=== PATIENT | male | born 1965 | race Caucasian/White ===

== ENCOUNTER 2021-06-25 15:36 | Emergency (ER) | payer OTHER ==
[~2021-06-25] VITALS: Ht 182.9 cm; Wt 95.3 kg
--- NOTE | 2021-06-25 15:38 | NUR ---
Placed in room 6 . Placed on cardiac cath rn, blood pressure machine and pulse oximeter. To gown for exam. Side rails up.
--- NOTE | 2021-06-25 15:41 | NUR ---
ER DR. PARKER AT THE BEDSIDE EXAMINING PT
[2021-06-25 15:44] VITALS: BP_SYST 168
--- NOTE | 2021-06-25 15:45 | NUR ---
PT SENT OVER FROM [facility] FOR C/O HTN AND GUERRERO. PT CHECKED HIMSELF IN TODAY FOR DETOX FROM ETOH. PT REPORTS HIS LAST DRINK WAS THIS AM. PT ARRIVES BP 168/98, PULSE 92. V/S STABLE. PT IS AAOX4. SKIN IS PINK, WARM AND DRY, BREATHING EVEN AND UNLABORED. NO DISTRESS NOTED.
[2021-06-25] MEDS ORDERED: LORazepam 1 MG TABLET PO ONE (16:00)
--- NOTE | 2021-06-25 16:30 | NUR ---
PT SITTING UP IN BED, AWAKE, ALERT, NO DISTRESS NOTED.
--- NOTE | 2021-06-25 17:08 | NUR ---
REPORT GIVEN TO MANE RAMIREZ FOR RETURN TO [facility]
--- NOTE | 2021-06-25 17:36 | NUR ---
DR. PARKER ON PHONE WITH GARY KIM FOR AUTH TO TRANSFER BACK VIA AMBULANCE
[2021-06-25 18:55] VITALS: BP_SYST 156
--- NOTE | 2021-06-25 18:55 | NUR ---
Patient given written and verbal discharge instructions and verbalizes understanding. ER MD discussed with patient the results and treatment provided. Patient in stable condition. ID arm band removed. NO Rx given. Patient educated on pain management and to follow up with PMD. Pain Scale 0/10. Opportunity for questions provided and answered. Medication side effect fact sheet provided.
--- NOTE | 2021-06-25 18:57 | NUR ---
[facility] HERE FOR TRANSPORT BACK TO [facility] FOR CONTINUING CARE UNDER DR. BIRD.
== END 2021-06-25 18:57 | disposition home or self-care (01) ==
LOC: SED 15:36
DX: F10.239 Alcohol dependence with withdrawal, unspecified (principal); I10 Essential (primary) hypertension; Y90.9 Presence of alcohol in blood, level not specified
CPT/HCPCS: 99283